=== PATIENT | female | born 1995 | race Caucasian/White ===

== ENCOUNTER 2019-10-23 23:51 | Emergency (ER) | payer OTHER, SELFPAY ==
--- NOTE | ~2019-10-23 | CT_ITS ---
EXAMINATION: CT abdomen pelvis w con DATE: 10/24/2019 01:15 INDICATION: Right lower abdominal pain. TECHNIQUE: Computed tomography (CT) of the abdomen and pelvis was performed with 100 mL Omnipaque-350 intravenous contrast. Automated exposure control and iterative reconstruction technique were employe d. The dose-length product was 206.54 mGy-cm. COMPARISON: None FINDINGS: Lung bases are clear. Heart size is normal. No pericardial or pleural effusion. Liver, gallbladder, s pleen, pancreas and bilateral adrenal glands are normal. Kidneys enhance symmetrically. There is mode rate right and mild left hydronephrosis. No evident stones at the kidneys or ureters. Mild urothelial enhancement is seen along the right ureter which raises possibility of ascending urinary tract infec tion. Bowels including the appendix are normal. Bladder is normal. IUD within the anteverted uterus. Bilateral adnexa are unremarkable. No free intraperitoneal gas or fluid. No pathologically enlarged a bdominal or pelvic lymphadenopathy. Bones are unremarkable. IMPRESSION: 1. Moderate right and mild left hydronephrosis without evident obstructing stone. There are some urot helial enhancement along the right ureter raising possibility of ascending urinary tract infection. C orrelate with urinalysis. 2. IUD. Reviewed, dictated and finalized at location A. IMPRESSION: 1. Moderate right and mild left hydronephrosis without evident obstructing ston e. There are some urothelial enhancement along the right ureter raising possibi lity of ascending urinary tract infection. Correlate with urinalysis. 2. IUD.
[2019-10-23 23:57] VITALS: BP 149/100; PULSE 100; RESP 16; TEMP 37.2; O2SAT 100
[2019-10-24 00:25] LABS: Basophils Percent Auto 0.5 % (0.2-1.2); Eosinophils Absolute Auto 0.1 K/mm3 (0-0.3); Eosinophils Percent Auto 0.9 % (0-4.4); Hematocrit 41.5 % (37.0-47.0); Hemoglobin 14.2 g/dL (12.0-15.0); Immature Granulocyte Absolute 0.02 K/mm3 (0.00-0.031); Immature Granulocyte Percent A 0.2 % (0-0.5); Lymphocytes Absolute Auto 1.47 K/mm3 (0.9-3.2); Lymphocytes Percent Auto 17.3 % (18.3-44.2); Mean Corpuscular HGB Conc 34.2 g/dl (32-36); Mean Corpuscular Hemoglobin 30.7 pg (26-34); Mean Corpuscular Volume 89.6 fl (80-100); Mean Platelet Volume 9.1 fl (7.4-10.4); Monocytes Absolute Auto 0.7 K/mm3 (0.1-0.6); Neutrophils Absolute Auto 6.2 K/mm3 (1.3-6.7); Neutrophils Percent Auto 73.1 % (45.5-73.1); Platelet Count Result 360 k/mm3 (150-375); Red Blood Count 4.63 M/mm3 (4.2-5.4); White Blood Count 8.5 K/mm3 (4.5-10.0)
[2019-10-24 00:30] LABS: Alanine Aminotransferase 17 U/L (4-35); Alkaline Phosphatase 54 U/L (38-126); Aspartate Amino Transferase 27 U/L (14-36); Bilirubin,Total 0.6 mg/dL (0.2-1.3); Blood Urea Nitrogen 12 mg/dL (7-17); Calcium 9.4 mg/dL (8.4-10.2); Carbon Dioxide 25 mmol/L (22-30); Chloride 101 mmol/L (98-107); Estimated CRCL calculation 86 ml/min; Estimated Glomerular Filt Rate > 60; Glucose 106 mg/dL (65-105); Lipase 82 U/L (23-300); Potassium 3.5 mmol/L (3.4-5.0); Sodium 137 mmol/L (137-145)
[2019-10-24 00:32] LABS: Add Urine Microscopic? YES; Appearance Urine Clear (Clear); Bacteria Urine Trace /hpf; Bilirubin Urine Negative (Negative); Blood Urine 1+ (Negative); Color Urine Straw (Yellow); Glucose Urine UA Negative (Negative); Ketones Urine Negative (Negative); Leukocyte Esterase Ur Negative LEU/UL (Negative); Nitrate Urine Negative (Negative); Protein Urine Negative (Negative); RBC Urine 0-2 /hpf (0-2); Squamous Epithelial Cell Urine Occasional /hpf (Few); Urobilinogen Urine Negative mg/dL (<2.0); WBC Urine 0-3 /hpf
--- NOTE | 2019-10-24 00:46 | ED.ABDPAIN ---
HPI - Abdominal Pain General Chief Complaint: Abdominal Pain Stated Complaint: abd pain Time Seen by Provider: 10/24/19 00:38 Source: patient Mode of arrival: ambulatory Limitations: no limitations History of Present Illness HPI narrative: This patient is a 24 year old female who presents for evaluation of right lower abdominal pain. Patient states yesterday she had lower back pain. She developed sudden onset right lower abdominal pain 3 hours ago. She states this pain occurs in waves. She took 400 mg ibuprofen at the onset of her pain. She denies associated nausea, vomiting, fever, dysuria, hematuria, vaginal discharge. She has chronic frequent urination after her UPJ obstruction repair. PAtient also reports she had IUD placed last week at [facility]. Related Data Allergies Allergy/AdvReac Type Severity Reaction Status Date / Time No Known Allergies Allergy Verified 10/24/19 00:01 Review of Systems Review of Systems: All systems reviewed & are unremarkable except as noted in HPI and below Constitutional: Constitutional: Denies chills and Denies fever(s) Gastrointestinal: Gastrointestinal: Reports abdominal pain Genitourinary: Genitourinary: Reports nocturia, Denies dysuria and Denies vaginal discharge Musculoskeletal: Musculoskeletal: Reports back pain PMFSH Past Medical History Medical History (Updated 10/24/19 @ 03:12 by Jessica Lim MD) Patient denies medical problems UPJ obstruction, congenital Surgical History Surgical History (Updated 10/24/19 @ 03:00 by Jessica Lim MD) S/P ureteral stent placement Social History Social History (Updated 10/24/19 @ 03:00 by Jessica Lim MD) Smoking status: Never smoker Gender identity (if verbalized by the patient): Female Exam Narrative: Exam Narrative: GENERAL: Well-appearing, well-nourished, and in no acute distress. HEAD: Normocephalic, atraumatic EYES: PERRLA and EOMI, conjunctiva clear without discharge THROAT:Mucous membranes moist, NECK: Supple, RESPIRATORY: No respiratory distress, Airway patent, Respirations non-labored, Clear to auscultation without rales, rhonchi or wheeze HEART: Regular rate and rhythm. No murmur heard. Normal peripheral pulses. ABDOMEN: Soft, RLQ mild tenderness nondistended, normal active bowel sounds. No masses. No rebound or guarding, No organomegaly. EXTREMITIES: No edema, normal strength with full range of motion. SKIN: Warm, dry, normal color without rash NEURO: Alert and oriented x3. CN 2-12 grossly intact. No focal deficits. PSYCH: Normal mood and affect. : Other: IUD string in place Back/Spine/Pelvis: Back: no CVA tenderness Course Reevaluation(s) Reevaluation #1: I have discussed with patient and her mother CT findings. She states she has urologist at [place] that she sees. She has no UTI at this time. 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 She will follow up next week. Her pain is likely from this hydronephrosis. Date: 10/24/19 Time: 03:03 Vital Signs Vital signs: Vital Signs Temperature 99 F 10/23/19 23:57 Pulse Rate 100 10/23/19 23:57 Respiratory Rate 16 10/23/19 23:57 Blood Pressure 149/100 H 10/23/19 23:57 Pulse Oximetry 100 10/23/19 23:57 Temperature 97.4 F L 10/24/19 03:46 Pulse Rate 61 10/24/19 03:46 Respiratory Rate 18 10/24/19 03:46 Blood Pressure 119/68 10/24/19 03:46 Pulse Oximetry 99 10/24/19 03:46 MDM - Abdominal Pain Lab Data Attestation: I reviewed the patient's lab results. Result diagrams: 10/24/19 00:09 10/24/19 00:09 Labs: Lab Results 10/24/19 10/24/19 10/24/19 Range/Units 00:09 00:09 00:09 WBC 8.5 (4.5-10.0) K/mm3 RBC 4.63 (4.2-5.4) M/mm3 Hgb 14.2 (12.0-15.0) g/dL Hct 41.5 (37.0-47.0) % MCV 89.6 (80-100) fl MCH 30.7 (26-34) pg MCHC 34.2 (32-36) g/dl RDW 12.0 (11.5-14.5) % Plt Count 360
[2019-10-24 02:21] VITALS: BP 121/78; PULSE 67; RESP 15; O2SAT 99
--- NOTE | 2019-10-24 02:23 | PC.NURSE ---
Signed patient over. Report to TRACY Hooper
[2019-10-24 03:46] VITALS: BP 119/68; PULSE 61; RESP 18; TEMP 36.3; O2SAT 99
== END 2019-10-24 03:50 | disposition home or self-care (01) ==
PROVIDERS: Emergency Provider General Practice; PCP Internal Medicine
DX: N13.30 Unspecified hydronephrosis (principal); R10.31 Right lower quadrant pain; Z97.5 Presence of (intrauterine) contraceptive device
CPT/HCPCS: 36415; 74177; 80053; 81001; 81025; 83690; 85025; 87086; 99284; Q9967